=== PATIENT | female | born 1975 | race Caucasian/White ===

== ENCOUNTER 2021-11-26 13:43 | Outpatient (REF) | payer OTHER, SELFPAY ==
[2021-11-26 12:18] LABS: BUN 10 mg/dL (7-18); CREATININE 0.9 mg/dL (0.55-1.02); Chloride 105 mmol/L (98-107); Glucose 79 mg/dL (74-106); Potassium 4.4 mmol/L (3.5-5.1); Sodium 141 mmol/L (136-145)
== END 2021-11-26 13:44 | disposition home or self-care (01) ==
LOC: NCHCN 13:43
PROVIDERS: PCP Nurse Practitioner Family; Visit Provider Nurse Practitioner Family
DX: M54.16 Radiculopathy, lumbar region (principal)
CPT/HCPCS: 80048

== ENCOUNTER 2023-08-23 15:51 | Outpatient (REF) | payer OTHER, SELFPAY | END 2023-08-23 15:52 | disposition home or self-care (01) | LOC: LBN 15:51 | PROVIDERS: PCP Nurse Practitioner Family; Visit Provider Nurse Practitioner Family | DX: N30.01 Acute cystitis with hematuria (principal) | CPT/HCPCS: 87086 ==

== ENCOUNTER 2024-07-13 12:57 | Outpatient (REF) | payer OTHER, SELFPAY | END 2024-07-13 12:58 | disposition home or self-care (01) | LOC: NCHCN 12:57 | PROVIDERS: PCP Nurse Practitioner Family; Visit Provider Family Medicine | DX: N39.0 Urinary tract infection, site not specified (principal); R82.89 Other abnormal findings on cytological and histological examination of urine | CPT/HCPCS: 87077; 87086; 87186 ==

== ENCOUNTER 2024-07-27 21:19 | Outpatient (REF) | payer OTHER, SELFPAY | END 2024-07-27 21:20 | disposition home or self-care (01) | LOC: NCHCN 21:19 | PROVIDERS: PCP Nurse Practitioner Family; Visit Provider Nurse Practitioner Family | DX: N39.0 Urinary tract infection, site not specified (principal); R82.89 Other abnormal findings on cytological and histological examination of urine | CPT/HCPCS: 87086 ==

== ENCOUNTER 2025-05-22 15:13 | Outpatient (REF) | payer OTHER, SELFPAY ==
[2025-05-22 15:46] LABS: TSH 2.91 uIU/mL (0.36-3.74)
== END 2025-05-22 15:14 | disposition home or self-care (01) ==
LOC: NCHCN 15:13
PROVIDERS: Visit Provider Physician Assistant Medical
DX: E04.1 Nontoxic single thyroid nodule (principal)
CPT/HCPCS: 84439; 84443